=== PATIENT | female | born 1950 | race Caucasian/White ===

== ENCOUNTER 2018-12-10 08:53 | Inpatient (IN) ==
[~2018-12-10 08:53] MED LIST: Adenosine 90 MG/30 ML MLS IV ONE
[2018-12-10] MEDS ORDERED: Nitroglycerin 0.4 MG TAB.SUBL SL PRN (09:07)
[2018-12-10] MEDS ORDERED: Aspirin 81 MG TAB.CHEW PO ONE (09:07)
[2018-12-10 09:49] LABS: Basophils # 0.1 K/mcL (0.0-0.2); Basophils % 0.5 %; Eosinophils # 0.4 K/mcL (0.0-0.6); Eosinophils % 3.6 %; Hematocrit 43.1 % (35.3-44.9); Hemoglobin 13.7 g/dL (11.5-15.4); Immature Granulocytes % 0.6 % (0-4); Lymphocytes % 19.2 %; Mean Corpuscular HGB Conc 31.8 g/dL (31.6-35.5); Mean Corpuscular Hemoglobin 29.2 pg (28.0-33.3); Mean Corpuscular Volume 91.9 fL (83.0-100.0); Mean Platelet Volume 10.7 fL (9.4-12.4); Monocytes # 0.9 K/mcL (0.0-1.3); Neutrophils # 6.8 K/mcL (1.6-8.9); Platelet Count 290 K/mcL (140-400); Red Blood Count 4.69 M/mcL (3.82-4.97); Red Cell Distribution Width 14.4 % (11.5-14.5); Segmented Neutrophils % 67.1 %; White Blood Count 10.2 K/mcL (4.3-11.1)
[2018-12-10 10:03] LABS: Calcium 8.8 mg/dL (8.6-10.3); Potassium 3.8 mEq/L (3.5-5.1)
[2018-12-10 10:17] LABS: Troponin I 0.14 ng/mL (< 0.04)
[2018-12-10] MEDS ORDERED: *HR* Heparin 5,000 UNIT/ML VIAL IVP PRN ×2 (10:52)
[2018-12-10] MEDS ORDERED: *HR* Heparin 5,000 UNIT/ML VIAL IVP ONE (10:52)
[2018-12-10] MEDS ORDERED: Ondansetron 4 MG/2 ML VIAL IVP PRN (10:53)
[2018-12-10] MEDS ORDERED: Naloxone 0.4 MG/ML INJ IVP PRN (10:53)
[2018-12-10] MEDS ORDERED: *HR* Dextrose 50 % in Water (Syg) 50 ML SYRINGE IVP PRN (10:57)
[2018-12-10] MEDS ORDERED: D5% in Water 1,000 ML IVC PRN (10:57)
[2018-12-10] MEDS ORDERED: Dextrose Gel 15 GM/37.5 ML TUBE PO PRN ×2 (10:57)
[2018-12-10] MEDS ORDERED: Heparin 25,000 UNIT/250 ML D5W 25,000 UNIT/250 ML IV.SOLN IVC SCH (11:00)
[2018-12-10 11:22] LABS: Hematocrit 40.8 % (35.3-44.9); Hemoglobin 13.1 g/dL (11.5-15.4); Mean Corpuscular HGB Conc 32.1 g/dL (31.6-35.5); Mean Corpuscular Hemoglobin 29.5 pg (28.0-33.3); Mean Corpuscular Volume 91.9 fL (83.0-100.0); Mean Platelet Volume 10.8 fL (9.4-12.4); Platelet Count 266 K/mcL (140-400); Red Blood Count 4.44 M/mcL (3.82-4.97); Red Cell Distribution Width 14.4 % (11.5-14.5); White Blood Count 11.6 K/mcL (4.3-11.1)
[2018-12-10 11:30] LABS: Heparin anti-factor XA UFH 0.03 IU/mL (0.30-0.70); INR 0.9; Prothrombin Time 10.6 Seconds (9.4-12.1)
[2018-12-10] MEDS: Insulin LISPRO 300 UNITS/3 ML VIAL SQ SCH ×3 (13:15→22:07)
[2018-12-10] MEDS: 0.9 % Sodium Chloride 1,000 ML IVC SCH (13:17)
[2018-12-10] MEDS ORDERED: Perflutren Lipid Microsphere 1.3 ML in 0.9 % Sodium Chloride 8.7 ML IVP ONE (20:45)
[2018-12-10] MEDS: Insulin DETEMIR 100 UNIT/ML X5UNITS SQ SCH (22:06)
[2018-12-11 01:15] LABS: Hematocrit 39.4 % (35.3-44.9); Hemoglobin 12.5 g/dL (11.5-15.4); Mean Corpuscular HGB Conc 31.7 g/dL (31.6-35.5); Mean Corpuscular Hemoglobin 28.7 pg (28.0-33.3); Mean Corpuscular Volume 90.6 fL (83.0-100.0); Platelet Count 276 K/mcL (140-400); Red Blood Count 4.35 M/mcL (3.82-4.97); Red Cell Distribution Width 14.6 % (11.5-14.5); White Blood Count 11.1 K/mcL (4.3-11.1)
[2018-12-11 01:30] LABS: Estimated Average Glucose 249 mg/dl
[2018-12-11 01:32] LABS: Chol/HDL Ratio 5.9 (0-4.9)
[2018-12-11 01:33] LABS: BUN/Creatinine Ratio 19 (6-26); Blood Urea Nitrogen 20 mg/dL (8-23); Calcium 8.6 mg/dL (8.6-10.3); Carbon Dioxide 25 mEq/L (23-29); Chloride 107 mEq/L (98-107); Glucose 137 mg/dL (70-105); Magnesium 1.8 mg/dL (1.6-2.6); Osmolality,Calculated 293 (280-300); Potassium 3.6 mEq/L (3.5-5.1); Sodium 139 mEq/L (136-145); eGFR For African Americans > 60 (> 60); eGFR For Non-African Americans 52 (> 60)
[2018-12-11] MEDS: 0.9 % Sodium Chloride 1,000 ML IVC SCH (03:40)
[2018-12-11] MEDS: Insulin LISPRO 300 UNITS/3 ML VIAL SQ SCH ×4 (07:31→20:37)
[2018-12-11] MEDS: Fenofibrate 54 MG TABLET PO SCH (08:01)
[2018-12-11] MEDS: Venlafaxine XR (24 HR) 150 MG CAP.ER.24H PO SCH (08:01)
[2018-12-11] MEDS: Aspirin Enteric Coated 81 MG Tablet PO SCH (08:01)
[2018-12-11] MEDS ORDERED: *HR* Midazolam HCl 2 MG/2 ML VIAL ONE (08:49)
[2018-12-11] MEDS ORDERED: ISOVUE-370 200 ML INFUS..BTL ONE (08:50)
[2018-12-11] MEDS ORDERED: 0.9 % Sodium Chloride 1,000 ML ONE (08:50)
[2018-12-11] MEDS ORDERED: Heparin 1,000 UNITS/500 mL 500 ML ONE (08:50)
[2018-12-11] MEDS ORDERED: *HR* Heparin 10,000 UNIT/10 ML VIAL ONE (08:50)
[2018-12-11] MEDS ORDERED: *HR* FentaNYL (PF) 100 MCG/2 ML VIAL ONE (08:50)
[2018-12-11] MEDS ORDERED: Nitroglycerin 1,000 MCG/10 ML VIAL IV ONE (08:51)
[2018-12-11] MEDS ORDERED: *HR* Bivalirudin 250 MG VIAL IVC ONE (09:28)
[2018-12-11] MEDS ORDERED: *HR* Ticagrelor 90 MG TABLET ONE (09:51)
[2018-12-11] MEDS ORDERED: Isovue-300 200 mL Infus..BTL ONE (09:53)
[2018-12-11] MEDS: Insulin DETEMIR 100 UNIT/ML X5UNITS SQ SCH (20:35)
[2018-12-12 01:23] LABS: Hematocrit 40.8 % (35.3-44.9)
[2018-12-12 01:38] LABS: Potassium 3.8 mEq/L (3.5-5.1)
[2018-12-12 01:39] LABS: BUN/Creatinine Ratio 17 (6-26); Blood Urea Nitrogen 22 mg/dL (8-23); eGFR For African Americans 51 (> 60); eGFR For Non-African Americans 42 (> 60)
[2018-12-12] MEDS: *HR* Heparin 5,000 UNIT/ML VIAL SQ SCH ×2 (05:15→17:04)
[2018-12-12] MEDS ORDERED: D5% in 0.45% NACL 1,000 ML IVC SCH ×2 (09:30→17:30)
[2018-12-12] MEDS: Fenofibrate 54 MG TABLET PO SCH (09:33)
[2018-12-12] MEDS: Venlafaxine XR (24 HR) 150 MG CAP.ER.24H PO SCH (09:34)
[2018-12-12] MEDS: Aspirin Enteric Coated 81 MG Tablet PO SCH (09:34)
[2018-12-12] MEDS: Insulin LISPRO 300 UNITS/3 ML VIAL SQ SCH ×4 (09:37→22:14)
[2018-12-12] MEDS ORDERED: Insulin DETEMIR 100 UNIT/ML X5UNITS SQ SCH (21:00)
[2018-12-13 02:31] LABS: Hemoglobin 12.5 g/dL (11.5-15.4); Mean Corpuscular HGB Conc 32.1 g/dL (31.6-35.5); Mean Corpuscular Hemoglobin 29.3 pg (28.0-33.3); Mean Corpuscular Volume 91.3 fL (83.0-100.0); Platelet Count 253 K/mcL (140-400); Red Blood Count 4.27 M/mcL (3.82-4.97); Red Cell Distribution Width 14.4 % (11.5-14.5)
[2018-12-13 02:36] LABS: Albumin 3.6 g/dL (3.5-5.7); Albumin/Globulin Ratio 1.3 (1.1-2.2); Bilirubin,Total 0.4 mg/dL (0.3-1.0); Calcium 8.8 mg/dL (8.6-10.3); Globulin 2.7 g/dL (2.4-3.5); Magnesium 1.8 mg/dL (1.6-2.6); Phosphorous 2.9 mg/dL (2.7-4.5); Potassium 3.8 mEq/L (3.5-5.1); Total Protein 6.3 g/dL (6.4-8.9)
[2018-12-13] MEDS: *HR* Heparin 5,000 UNIT/ML VIAL SQ SCH (05:01)
[2018-12-13 07:51] VITALS: BP 124/79
[2018-12-13] MEDS: Insulin LISPRO 300 UNITS/3 ML VIAL SQ SCH (08:12)
[2018-12-13] MEDS: Aspirin Enteric Coated 81 MG Tablet PO SCH (08:13)
[2018-12-13] MEDS: Venlafaxine XR (24 HR) 150 MG CAP.ER.24H PO SCH (08:13)
[2018-12-13] MEDS: Fenofibrate 54 MG TABLET PO SCH (08:14)
== END 2018-12-13 10:59 | disposition home or self-care (01) | DRG 247 ==
LOC: EMEROOARM 08:53 → 2NENU 11:50 → SUATTDRO 11:50 → 2NENU 12:34
PROVIDERS: ADMIT Internal Medicine; ATTEND Internal Medicine

== ENCOUNTER 2019-02-26 16:16 | Observation (INO) ==
--- NOTE | 2019-02-26 18:57 | Internal Med History&Physical ---
Date of Encounter: 02/26/19 Time of Encounter: 18:51 Internal Medicine - H&P: HPI Chief complaint: Chest pain Admitted From: Emergency Dept History of present illness: Letha Hernandez is a 69 F w hx CAD s/p PCIx1, HTN, HLD, DM2, obesity, former smoker, who p/w chest pain. Earlier today patient had sudden onset substernal and left-sided chest pressure radiating into back. Not exertional. No N/V, no diaphoresis, no other radiation. Does have some exertional dyspnea which is not new, and does feel more fatigued in the last few hours more than usual. Patient over in [place] visiting family today when symptoms began. Took an ASA and we nt to ED. She last saw Dr Cervantes in follow up last week and has had uncomplicated course thus far since last LHC in december. Last LHC in 12/2018: for NSTEMI, showed intact LMA, 40% stenosis in proximal LAD and 90% in D1, 50% stenosis and LCx, 60% stenosis and proximal RCA. She had LEONEL placed and mid LCx. In the OSH ED, vitals afebrile, HR 84, RR 16, SBP 151, 97% on RA. Labs notable for wbc 10, hb 13, plt 280, k 4.3, bun 19, cr 1.13, mg 2. CXR no acute process. ECG inferior q waves but no ST-T changes. Past medical, surgical, social, and family histories reviewed and updated as below. Past Med Surg Social Fam HX - Past Medical History Medical history: diabetes, hyperlipidemia, hypertension, TIA Psychiatric history: depression - Past Surgical History Surgical History: no surgical history - Social History Smoking Status: Former smoker Smokeless Tobacco Status: No Alcohol use: none Drug use: none - Family History Father Hx Family Cardiac Disorders: Yes (First heart attack at age 43, eventually of cardiac issues) Mother Family Member Ethnicity: Non- Living Status: Hx Family Cardiac Disorders: Yes (grandmother heart attack) Hx Family Respiratory Disorders: No Hx Family Cancer: Yes (bone) Hx Family GI Disorders: No Hx Family Endocrine Disorder: Yes (brother and sister dm) Hx Family Neuromuscular Disorders: No Hx Family Neurologic Disorders: No Hx Family HEENT Disorders: No Internal Medicine - H&P: Meds Fenofibrate [Tricor] 54 mg PO QPM 12/10/18 [History] Insulin DETEMIR [Levemir Flextouch] 68 unit SQ QPM 12/10/18 [History] Losartan Potassium [Cozaar] 50 mg PO QPM 12/10/18 [History] Oxybutynin [Ditropan] 5 mg PO BID 12/10/18 [History] Pioglitazone HCl [Actos] 30 mg PO QPM 12/10/18 [History] Rosuvastatin Calcium 40 mg PO QPM 12/10/18 [History] Venlafaxine XR (24 HR) [Effexor Xr] 150 mg PO QPM 12/10/18 [History] Aspirin Enteric Coated [Aspirin EC] 81 mg PO DAILY #30 tablet. 12/13/18 [Rx] Clopidogrel [Plavix] 75 mg PO DAILY #30 tablet 12/13/18 [Rx] Metoprolol [Lopressor] 25 mg PO BID #60 tablet 12/13/18 [Rx] Allergy/AdvReac Type Severity Reaction Status Date / Time peanut Allergy Nausea Verified 12/10/18 17:40 Sulfa (Sulfonamide Allergy Hives Verified 12/10/18 17:40 Antibiotics) All Systems PM: A 10-system review of systems was performed and is negative for pertinent findings except as documented above in the HPI. - Constitutional Vitals: Vital Signs Temp Pulse Resp BP Pulse Ox 02/26/19 19:03 97.6 F 80 16 169/82 95 Patient Weight 02/26/19 23:59 Weight 106.141 kg Exam: General: NAD, good eye contact, well appearing, obese Head: Atraumatic, normocephalic. Face symmetric Eyes: EOMI, sclerae anicteric ENT: Mucous membranes moist. Normal oral mucosa and dentition. Trachea midline. Thoracic: No visible chest wall deformities. Normal breath sounds b/l, no wheezing or crackles Cardio: Normal S1 and S2, regular rate and rhythm Abdomen: Soft, nontender, nondistended. Obese Extremities: Warm, well perfused. DP pulses 2+ b/l. No edema Skin: Intact. No rashes, bruises, or ulcers Neuro: Awake, fully oriented. Good memory, concentration, attention. Speech fluent. CN II-XII grossly intact. Strength 5/5 in b/l UE and LE - Summary of Assessment and Plan Summary of Assessment and Plan: Letha Hernandez is a 69 F w hx CAD s/p PCIx1, HTN, HLD, DM2, obesity, former smoker, who p/w atypical chest pain. Chest pain: ECG unremarkable, trop x1 negative. HEART score elevated due to recent NSTEMI requiring stent - trend trops - tele - TTE - Cardio consult - ASA given - nitro SL prn pain CAD s/p NSTEMI and PCI 12/2018, HLD: home crestor 40, plavix 75, ASA 81, lopressor 25 bid, losartan 50, fenofibrate HTN: home lopressor as above DM2: home actos, levemir, add SSI while here Dep/anx: home effexor Obesity: BMI >30 PPx: lovenox Tele: yes Activity: up ad [place] FEN: ADA, no MIVF Lines: PIV Consults: Cardio Code: Full Dispo: obs for CP/WEI, anticipate 1-2 days, will be homegoing
[2019-02-26] MEDS ORDERED: Ondansetron 4 MG/2 ML VIAL IVP PRN (19:00)
[2019-02-26] MEDS ORDERED: Acetaminophen 325 MG TABLET PO PRN (19:00)
[2019-02-26] MEDS ORDERED: Nitroglycerin 0.4 MG TAB.SUBL SL PRN (19:02)
[2019-02-26] MEDS ORDERED: INSULIN DETEMIR SQ SCH (19:02)
[2019-02-26] MEDS ORDERED: Venlafaxine XR (24 HR) 150 MG CAP.ER.24H PO SCH (19:02)
[2019-02-26] MEDS ORDERED: Dextrose Gel 15 GM/37.5 ML TUBE PO PRN ×2 (19:07)
[2019-02-26] MEDS ORDERED: D5% in Water 1,000 ML IVC PRN (19:07)
[2019-02-26] MEDS ORDERED: *HR* Dextrose 50 % in Water (Syg) 50 ML SYRINGE IVP PRN (19:07)
[2019-02-26] MEDS ORDERED: Insulin DETEMIR 100 UNIT/ML X5UNITS SQ SCH (19:15)
[2019-02-27 04:17] LABS: Hematocrit 38.3 % (35.3-44.9); Hemoglobin 12.3 g/dL (11.5-15.4); Mean Corpuscular HGB Conc 32.1 g/dL (31.6-35.5); Mean Corpuscular Hemoglobin 29.6 pg (28.0-33.3); Mean Corpuscular Volume 92.3 fL (83.0-100.0); Mean Platelet Volume 10.7 fL (9.4-12.4); Platelet Count 255 K/mcL (140-400); Red Blood Count 4.15 M/mcL (3.82-4.97); Red Cell Distribution Width 14.6 % (11.5-14.5)
[2019-02-27 04:41] LABS: Magnesium 1.9 mg/dL (1.6-2.6); Troponin I < 0.03 ng/mL (< 0.04)
[2019-02-27 08:18] VITALS: BP 156/83
[2019-02-27] MEDS: Insulin LISPRO 300 UNITS/3 ML VIAL SQ SCH ×2 (08:26→12:01)
[2019-02-27 08:47] LABS: BUN/Creatinine Ratio 16 (6-26); Blood Urea Nitrogen 19 mg/dL (8-23); Calcium 9.1 mg/dL (8.6-10.3); Carbon Dioxide 25 mEq/L (23-29); Chloride 105 mEq/L (98-107); Glucose 203 mg/dL (70-105); Osmolality,Calculated 292 (280-300); Potassium 4.5 mEq/L (3.5-5.1); Sodium 137 mEq/L (136-145); eGFR For African Americans 54 (> 60); eGFR For Non-African Americans 44 (> 60)
[2019-02-27] MEDS ORDERED: Aspirin Enteric Coated 81 MG Tablet PO SCH (09:00)
--- NOTE | 2019-02-27 12:51 | Cardiology Consult Note ---
<Tho Frey - Last Filed: 02/27/19 12:49> Date of Encounter: 02/27/19 Time of Encounter: 09:40 Assessment and Plan (1) Chest pain Status: Acute C/o chest pain that is not like her previous angina. Troponin negative. EKG with no acute ST changes. Last [facility] 12/2018 s/p LEONEL to LCX artery. There was 90% stenosis 1st dx artery ( small vessel). 50% stenosis and LCx, 60% stenosis and proximal RCA. TTE 12/2018 EF 65%. No further cardiac testing recommeded at this time. Recommend adding imdur 30 mg daily and NTG SL PRN to medications. Patient agrees with plan. Out-pt f/u with cardiology 2wks is recommended. Qualifiers: Chest pain type: unspecified Qualified Code(s): R07.9 - Chest pain, unspecified (2) CAD (coronary artery disease) Status: Acute S/p NSTEMI 12/2018.Last [facility] in 12/2018: for NSTEMI, showed intact LMA, 40% stenosis in proximal LAD and 90% in D1, 50% stenosis and LCx, 60% stenosis and proximal RCA. She had LEONEL placed and mid LCx. Continue asa, plavix, statin, bb. Add imdur and NTG SL. Qualifiers: Coronary Disease-Associated Artery/Lesion type: [place] artery [place] vs. transplanted heart: [place] heart Associated angina: without angina Qualified Code(s): I25.10 - Atherosclerotic heart disease of [place] coronary artery without angina pectoris Discussion w patient/family: The assessment and plan as outlined above was discussed with the patient and/or family members who expressed understanding and agreement. All questions were answered. Thank you for involving us in the care of your patient. Please call with any questions. History of Present Illness Consult date: 02/27/19 Requesting physician: Ricardo Barajas Consult reason: Chest pain Chief complaint: Chest pain History of present illness: Ms. Hernandez is a 69 year old female with past medical history of NSTEMI and PCI 12/2018, HTN, HLD, DM type II, and prior tobacco use who presents with c /o chest pain. C/o left sided chest pain radiating to her back. The pain was not the same as she felt with her WA. She denies NTG use. She denies SOB, palpitations, or dizziness. Past Med Surg Social Fam HX - Past Medical History Medical history: diabetes, hyperlipidemia, hypertension, TIA Psychiatric history: depression - Past Surgical History Surgical History: no surgical history - Social History Smoking Status: Former smoker Smokeless Tobacco Status: No Alcohol use: none Drug use: none - Family History Father Hx Family Cardiac Disorders: Yes (First heart attack at age 43, eventually of cardiac issues) Mother Family Member Ethnicity: Non- Living Status: Hx Family Cardiac Disorders: Yes (grandmother heart attack) Hx Family Respiratory Disorders: No Hx Family Cancer: Yes (bone) Hx Family GI Disorders: No Hx Family Endocrine Disorder: Yes (brother and sister dm) Hx Family Neuromuscular Disorders: No Hx Family Neurologic Disorders: No Hx Family HEENT Disorders: No Medications and Allergies Insulin DETEMIR [Levemir Flextouch] 72 unit SQ QPM 12/10/18 [History] Losartan Potassium [Cozaar] 50 mg PO QPM 12/10/18 [History] Oxybutynin [Ditropan] 5 mg PO BID 12/10/18 [History] Pioglitazone HCl [Actos] 30 mg PO QPM 12/10/18 [History] Rosuvastatin Calcium 40 mg PO QPM 12/10/18 [History] Venlafaxine XR (24 HR) [Effexor Xr] 150 mg PO QPM 12/10/18 [History] Aspirin Enteric Coated [Aspirin EC] 81 mg PO DAILY #30 tablet. 12/13/18 [Rx] Clopidogrel [Plavix] 75 mg PO DAILY #30 tablet 12/13/18 [Rx] Metoprolol [Lopressor] 25 mg PO BID #60 tablet 12/13/18 [Rx] Isosorbide MONOnitrate (24 HR) [Imdur] 30 mg PO DAILY #30 tab.er.24h 02/27/19 [Rx] Nitroglycerin [Nitrostat] 0.4 mg SL Q5M #30 tab.subl 02/27/19 [Rx] Allergy/AdvReac Type Severity Reaction Status Date / Time peanut Allergy Nausea Verified 12/10/18 17:40 Sulfa (Sulfonamide Allergy Hives Verified 12/10/18 17:40 Antibiotics) All Systems Review: The remainder of the systems were reviewed and are negative Physical Examination General: Conversant, No Apparent Distress HEENT: Atraumatic, Normocephaly, Mucus Membranes Moist Neck: No JVD, Normal carotid pulses Cardiac: Reg Rate and Rhythm, Normal S1 and S2, No Murmur Lungs: Normal Breath Sounds, No Wheeze, Rales, Rhonchi Neuro: Alert and responsive, No focal deficits noted Abdomen: Soft, Non-Tender Skin: No rashes noted on visualized skin Musculoskeletal: No Chest Wall Tenderness Extremities: No Clubbing, No Cyanosis, No Edema, Normal Pulses Results 02/27/19 04:05 02/27/19 04:05 Lab Results 02/26/19 02/27/19 02/27/19 19:31 04:05 04:05 WBC 8.0 Hgb 12.3 Hct 38.3 Plt Count 255 Sodium 137 Potassium 4.5 Chloride 105 Carbon Dioxide 25 BUN 19 Creatinine 1.20 Glucose 203 H Calcium 9.1 Magnesium 1.9 Troponin I < 0.03 < 0.03 B-Natriuretic Peptide 02/27/19 04:05 WBC Hgb Hct Plt Count Sodium Potassium Chloride Carbon Dioxide BUN Creatinine Glucose Calcium Magnesium Troponin I B-Natriuretic Peptide 133 H Consult Discharge Plan - Plan Instructions: Isosorbide Dinitrate (By mouth), Nitroglycerin (By mouth) Additional Instructions: Make sure you get your flu shot this year. Follow-up appointments: If there is not an appointment listed below, please call your physician and schedule a follow-up appointment. If you have congestive heart failure and your symptoms return, make an appointment with your physician. Medication List: Carry an up to date list of medications you are taking at all time. We have given you an updated medication list including any new medications that you have been prescribed. Please provide that list to your primary provider Symptoms: If your condition changes or you experience any of the following symptoms, notify your physician immediately: Unusual or worsening pain, fever, persistent nausea and vomiting, bleeding, increase in swelling (especially in your legs), sudden weight gain, extreme dizziness, chest pain, increased drainage or redness from a wound or incision. Go to the emergency department if you experience a problem with breathing. Weights: If you have a history of swelling or shortness of breath, weigh yourself daily and notify your physician if you have a weight gain of two or more pounds in one day or 5 or more pounds in a week. If you experience any of the warning signs for stroke: Sudden numbness or weakness of the face, arm or leg; especially on one side of the body, sudden confusion, trouble speaking or understanding, sudden trouble seeing in one or both eyes, sudden trouble walking, dizziness, loss of balance or coordination, sudden sever headache with no cause; Call 911 or go to the emergency room. Stroke is a medical emergency. Some risk factors for stroke: Age, cigarette smoking, diabetes, excessive alcohol consumption, family history, high blood pressure, overweight, physical inactivity, prior stroke, heart attack, diagnosis of carotid artery stenosis or other artery disease. If you smoke, STOP: Smoking or tobacco use significantly increases your risk of heart and lung disease. Your chance of disease greatly increases if you continue to smoke. For more information, call the [place] tobacco quit line for smoking cessation 0-440-MPUL-NOW ( ) Referrals: Frank Serrano, [facility] FOR[facility] [Primary Care Provider] - 03/06/19 12:30 pm Prescriptions: Isosorbide MONOnitrate (24 HR) [Imdur] 30 mg PO DAILY #30 tab.er.24h Transmission Status: Received by [id number] Nitroglycerin [Nitrostat] 0.4 mg SL Q5M #30 tab.subl Transmission Status: Received by [id number] <Gilberto Kolb - Last Filed: 02/27/19 21:02> Date of Encounter: 02/27/19 - Attending Attestation I have personally performed a face to face evaluation on this patient. I have reviewed and agree with the documented findings and care plan as documented by the [facility] OUT FOR[facility]. History and Exam by me shows: I agree with optimization of her anti-ischemic medications, by adding Imdur, for chest pain in a patient with CAD with recent PCI Thanks for the consult, please call with questions. Gilberto Kolb MD FACC Assessment and Plan Discussion w patient/family: The assessment and plan as outlined above was discussed with the patient and/or family members who expressed understanding and agreement. All questions were answered. Thank you for involving us in the care of your patient. Please call with any questions. History of Present Illness History of present illness: Ms. Hernandez is a 69 year old female All Systems Review: The remainder of the systems were reviewed and are negative Results 02/27/19 04:05 02/27/19 04:05 Lab Results 02/27/19 02/27/19 02/27/19 04:05 04:05 04:05 WBC 8.0 Hgb 12.3 Hct 38.3 Plt Count 255 Sodium 137 Potassium 4.5 Chloride 105 Carbon Dioxide 25 BUN 19 Creatinine 1.20 Glucose 203 H Calcium 9.1 Magnesium 1.9 Troponin I < 0.03 B-Natriuretic Peptide 133 H
[2019-02-27] MEDS ORDERED: Isosorbide MONOnitrate (24 HR) 30 MG TAB.ER.24H PO SCH (12:55)
--- NOTE | 2019-02-27 13:19 | Discharge Summary ---
- NOTES TO OUTPATIENT PROVIDER Notes to Outpatient Provider: Chest pain, has Cardio follow up 2 weeks Date of Encounter: 02/27/19 Time of Encounter: 13:17 Hospital course: Dear Doctors, I recently had the opportunity to care for this patient during their recent hospital stay at [facility]. Letha Hernandez is a 69 F w hx CAD s/p PCIx1, HTN, HLD, DM2, obesity, former smoker, who presented at time of admission w chest pain. Pain was sudden onset substernal and left-sided chest pressure radiating into back, not exertional, w/o N/V or diaphoresis. Took an ASA and went to ED. She last saw Dr Cervantes in follow up last week and has had uncomplicated course thus far since last LHC in december for NSTEMI. That LHC showed intact LMA, 40% stenosis in proximal LAD and 90% in D1, 50% stenosis and LCx, 60% stenosis and proximal RCA. She had LEONEL placed and mid LCx. In the hospital, ECG and trops unremarkable, and pain resolved. Cardio consult saw patient and started imdur, no further cardiac testing indicated at this time. Patient will follow up Cardio in 2 weeks. Dx: Atypical chest pain Pertinent tests/consults: Cardio consultation, no further testing at this time Follow up: Cardio 2 weeks Tests pending: none Med changes: - new Imdur 30 daily - new Nitro SL prn Mental status: awake, fully oriented Code status: Full It has been my pleasure participating in this patient's care. Please contact me with any questions or concerns regarding their hospital stay. Sincerely, Ricardo Barajas MD - Discharge Medications Prescriptions: New Isosorbide MONOnitrate (24 HR) [Imdur] 30 mg PO DAILY #30 tab.er.24h Nitroglycerin [Nitrostat] 0.4 mg SL Q5M #30 tab.subl Continued Rosuvastatin Calcium 40 mg PO QPM Losartan Potassium [Cozaar] 50 mg PO QPM Pioglitazone HCl [Actos] 30 mg PO QPM Oxybutynin [Ditropan] 5 mg PO BID Venlafaxine XR (24 HR) [Effexor Xr] 150 mg PO QPM Insulin DETEMIR [Levemir Flextouch] 72 unit SQ QPM Aspirin Enteric Coated [Aspirin EC] 81 mg PO DAILY #30 tablet. Metoprolol [Lopressor] 25 mg PO BID #60 tablet Clopidogrel [Plavix] 75 mg PO DAILY #30 tablet Home Medications: Insulin DETEMIR [Levemir Flextouch] 72 unit SQ QPM 12/10/18 [History] Losartan Potassium [Cozaar] 50 mg PO QPM 12/10/18 [History] Oxybutynin [Ditropan] 5 mg PO BID 12/10/18 [History] Pioglitazone HCl [Actos] 30 mg PO QPM 12/10/18 [History] Rosuvastatin Calcium 40 mg PO QPM 12/10/18 [History] Venlafaxine XR (24 HR) [Effexor Xr] 150 mg PO QPM 12/10/18 [History] Aspirin Enteric Coated [Aspirin EC] 81 mg PO DAILY #30 tablet. 12/13/18 [Rx] Clopidogrel [Plavix] 75 mg PO DAILY #30 tablet 12/13/18 [Rx] Metoprolol [Lopressor] 25 mg PO BID #60 tablet 12/13/18 [Rx] Isosorbide MONOnitrate (24 HR) [Imdur] 30 mg PO DAILY #30 tab.er.24h 02/27/19 [Rx] Nitroglycerin [Nitrostat] 0.4 mg SL Q5M #30 tab.subl 02/27/19 [Rx] Allergies/Adverse Reactions: Allergy/AdvReac Type Severity Reaction Status Date / Time peanut Allergy Nausea Verified 12/10/18 17:40 Sulfa (Sulfonamide Allergy Hives Verified 12/10/18 17:40 Antibiotics) Date of admission: 02/26/19 18:13 Primary care physician: Frank Serrano CNP Consults: 02/26/19 19:00 Consult to Cardiology [CONS] Routine Comment: Consulting Provider: Cardiology Lydia Reason for Consult: chest pain, had NSTEMI and stent in December 2018 Call Completed: No - Constitutional Vitals: Temp Pulse Resp BP Pulse Ox 98.1 F 77 16 156/83 96 02/27/19 08:17 02/27/19 08:17 02/27/19 08:17 02/27/19 08:17 02/27/19 08:17 Exam: General: NAD, good eye contact, well appearing, obese Thoracic: Normal breath sounds b/l, no wheezing or crackles Cardio: Normal S1 and S2, regular rate and rhythm Abdomen: Soft, nontender, nondistended. Obese Extremities: Warm, well perfused. DP pulses 2+ b/l. No edema Skin: Intact. No rashes, bruises, or ulcers Neuro: Awake, fully oriented. Good memory, concentration, attention. Speech fluent. - Patient Status Disposition: Home, Self-Care Condition: Good Functional capacity at discharge: independent ambulation Overall status at discharge: patient is back to baseline - Discharge Instructions Follow Up With: Frank Serrano [employer] [Primary Care Provider] - 03/06/19 12:30 pm - Diet and Activity Activity: resume usual activities as tolerated Diet: advance to your usual diet
[2019-02-27] MEDS ORDERED: *HR* Pioglitazone 30 MG TABLET PO SCH (18:00)
[2019-02-27] MEDS ORDERED: Fenofibrate 54 MG TABLET PO SCH (18:00)
--- NOTE | 2019-03-04 10:33 | Electrocardiograph Report ---
[place] [id number] Test Date: 2019-02-26 Pat Name: Letha Hernandez Department: 113 Room: 3B39 Gender: F Change House Attendant: : 1950 Requested By: Ricardo Barajas Order Number: [id number] Reading MD: Radha Herzog Measurements Intervals [place] Rate: 84 P: 56 WV: 144 QRS: -7 QRSD: 87 T: 73 QT: 382 QTc: 423 Interpretive Statements SINUS RHYTHM LOW QRS VOLTAGE IN PRECORDIAL LEADS [QRS DEFLECTION < 1.0 mV IN CHEST LEADS] NONSPECIFIC ST & T-WAVE ABNORMALITY Electronically Signed On 03-04-2019 10:31:32 EDT by Radha Herzog
== END 2019-02-27 15:11 | disposition home or self-care (01) ==
LOC: 3BNU → SUATTDRO 18:13
PROVIDERS: ADMIT Internal Medicine; ATTEND Internal Medicine